=== PATIENT | female | born 1985 | race African-American/Black ===

== ENCOUNTER 2023-03-14 14:45 | Emergency (ER) | payer OTHER ==
[~2023-03-14] VITALS: Ht 175.3 cm; Wt 121.0 kg
[2023-03-14 15:17] VITALS: BP 141/81; O2SAT 100
[2023-03-14] MEDS ORDERED: KETOROLAC 30MG/ML VIAL IM ONE (16:45)
[2023-03-14] MEDS ORDERED: ACET-2708 MT (18:32)
[2023-03-14] MEDS ORDERED: NAPR-681 MT (18:32)
[2023-03-14 19:41] VITALS: PULSE 67; RESP 17; TEMP 98.5
== END 2023-03-14 19:44 | disposition home or self-care (01) ==
LOC: ER 16:09
DX: M25.561 Pain in right knee (principal); J45.909 Unspecified asthma, uncomplicated
CPT/HCPCS: 81025; 73560; 96372; 99283; J1885; Z7610; L1830